=== PATIENT | male | born 1980 | race Caucasian/White ===

== ENCOUNTER → 2016-12-20 | Outpatient (CLI) | payer BC ==
[~2016-12-20] MED LIST: AUGMENTIN TAB875 MG PO; KEFLEX500 MG PO; LISINOPRIL-HCT1 EAC1 PO
== END ==
LOC: CT 16:30
DX: R22.1 Localized swelling, mass and lump, neck (principal); E04.2 Nontoxic multinodular goiter
CPT/HCPCS: 70491; J7050; Q9962

== ENCOUNTER → 2021-01-03 | Outpatient (CLI) | payer BC ==
[~2021-01-03] MED LIST changes: +AZITHROMYCIN250 MG PO; +COMBIVENT RESPIM4 GM INH; +DEXAMETHASONE 44 MG PO; -LISINOPRIL-HCT1 EAC1 PO; +LISINOPRIL-HCT1 EACH PO; +MEDROL DOSEPAK 24 MG PO; +SYNTHROID150 MCG PO; +SYNTHROID175 MCG PO
== END ==
LOC: KOH-I 10:49
DX: M25.512 Pain in left shoulder (principal); M67.814 Other specified disorders of tendon, left shoulder
CPT/HCPCS: 73221